=== PATIENT | male | born 1945 | race Caucasian/White ===

== ENCOUNTER 2020-05-07 10:12 | Inpatient (IN) ==
[2020-05-07] MEDS ORDERED: 0.9 % SODIUM CHLORIDE 1,000 ML IV ONE (10:48)
--- NOTE | 2020-05-07 10:54 | Emergency Department Note ---
Fall HPI General Chief Complaint: Fall Stated Complaint: fall hip back pain Time Seen by Provider: 05/07/20 10:28 Source: patient and EMS Mode of arrival: ambulatory History of Present Illness HPI Narrative: Narrative: 74-year-old male patient brought to the emergency department via ambulance with chief complaint falling at home. Patient, as well as EMS and his brother, says that he was trying to to get his pajama pants on prior to going to bed. During this time he slid off of his bed and landed on the floor with his gluteus. His brother found him on the floor several hours later and tried to get him off the floor but was unsuccessful. Eventually, 911 was contacted. Patient is unsure exactly how long he was on the floor but he estimates several hours. He denies preceding dizziness, shortness of breath, or chest pain prior to slipping out of bed. He denies hitting his head or loss of consciousness. Upon arrival, patient does complain of bilateral hip and low back pain. ROS: Denies systemic illness, fever, sweats, chills. Denies headaches, tinnitus, or vision changes. Denies runny nose, sinus congestion, or cough. Denies shortness of breath. Denies retrosternal chest pain or palpitations. Denies abdominal pain, nausea, vomiting, or diarrhea. Denies dysuria, hematuria, urinary frequency, or urinary urgency. Admits to generalized weakness. Related Data Home Medications Medication Instructions Recorded Confirmed [id number] acid-vit 1 tab PO QDAY 07/01/19 03/04/20 K-lycop 400 mcg-20 mcg-370 mcg tablet brimonidine 0.2 % eye drops 1 drp OPHTHALMIC Q8H ml 07/25/19 05/07/20 latanoprost 0.005 % eye drops 1 drp OPHTHALMIC QPM 07/25/19 05/07/20 nitroglycerin 0.4 mg sublingual 0.4 mg SUBLINGUAL ONCE PRN tab 07/25/19 03/04/20 tablet timolol 0.5 % eye drops 1 drp OPHTHALMIC BID 07/25/19 05/07/20 Previous Rx's Medication Instructions Recorded oxybutynin chloride 5 mg tablet 5 mg PO QHS #90 tab 02/25/20 enzalutamide 40 mg capsule 160 mg PO Q24H #360 cap 03/17/20 Allergies Allergy/AdvReac Type Severity Reaction Status Date / Time Sulfa (Sulfonamide Allergy Intermediate Unknown Verified 05/07/20 13:47 Antibiotics) atorvastatin [From Lipitor] Allergy Unknown Unknown Verified 05/07/20 13:47 bacitracin Allergy Unknown Unknown Verified 05/07/20 13:47 [From Neosporin ([id number])] Neomycin Allergy Unknown Unknown Verified 05/07/20 13:47 [From Neosporin ([id number])] polymyxin B Allergy Unknown Unknown Verified 05/07/20 13:47 [From Neosporin ([id number])] Review of Systems ROS ROS Narrative: Narrative: All systems ED: reviewed and negative except as stated. [facility] Narrative Patient History Narrative: Narrative: Medical/Surgical/Family History All Active Problems (Updated 05/07/20 @ 14:29 by Tez Landa PA-C) Acute renal failure due to rhabdomyolysis (Acute) Hypoglycemia (Acute) Malignant neoplasm of prostate metastatic to bone (Acute) Fall at home (Acute) Abdominal aortic aneurysm (Chronic) Pain of left thumb (Chronic) Benign prostatic hyperplasia with urinary obstruction (Chronic) Inguinal hernia (Chronic) Carcinoma of prostate (Chronic) History of BPH (Chronic) Glaucoma (Chronic) Hyperlipidemia (Chronic) Anemia (Chronic) Elevated PSA (Chronic) History of ETOH abuse (Chronic) Vitamin D deficiency (Chronic) Abrasion (Acute) Upper respiratory infection (Acute) Community acquired pneumonia (Acute) Pneumonia (Acute) Sepsis (Acute) Splinter (Acute) Strain of lumbar region (Acute) Dental abscess (Acute) Medical History Abdominal aortic aneurysm (Chronic) Anemia (Chronic) Benign prostatic hyperplasia with urinary obstruction (Chronic) Carcinoma of prostate (Chronic) Elevated PSA (Chronic) Glaucoma (Chronic) History of BPH (Chronic) Benign Protastic Hypertrophy History of ETOH abuse (Chronic) Hyperlipidemia (Chronic) Inguinal hernia (Chronic) Pain of left thumb (Chronic) Vitamin D deficiency (Chronic) Surgical History H/O hernia repair (Chronic ~01/04/08) with mesh History of bilateral cataract extraction (Acute) History of colonoscopy (Chronic) History of right inguinal hernia repair (Chronic) using mesh prosthesis Family History Father Kidney disease History of renal dialysis Malignant tumor of prostate Mother No problems noted. Social History Smoking Status: Former smoker Alcohol Intake Frequency: former alcohol drinker Substance Use: does not use Exam Narrative Narrative: Narrative: General General appearance: other (Well-developed, well-nourished but chronically ill- appearing 74-year-old male patient laying supine on the emergency room rney in no acute respiratory distress. His speech is somewhat garbled secondary to extreme dryness to his oral mucosa. However, no nasal flaring. No accessory muscle use.) Head Head: atraumatic and normocephalic Expanded Head Head physical: Absent abrasion, contusion, hematoma, raccoon eyes and Saucedo's sign Eye Eye: Present normal appearance, PERRL and EOMI; Absent scleral icterus and conjunctival injection ENT ENT: Present normal oropharynx and mucous membranes dry (Profound dryness to the oromucosa making it somewhat difficult to understand the patient as he speaks.) Neck Neck: Present trachea midline; Absent lymphadenopathy and thyromegaly Chest Chest: Present symmetric chest wall rise Respiratory Respiratory: Present normal lung sounds bilaterally; Absent respiratory distress, wheezes, stridor, accessory muscle use and prolonged expiratory phase Cardiovascular Cardiovascular: Present regular rate and normal rhythm; Absent systolic murmur and diastolic murmur Adbominal Abdominal: Present soft; Absent distention, tenderness, guarding, rebound, rigidity, organomegaly and mass Extremities Extremities: Present normal inspection and full ROM; Absent tenderness, normal capillary refill (3 seconds) and pedal edema Expanded Upper Extremity Shoulder: Present tenderness (Bilateral hip tenderness without crepitus.) Back Back: Present L-S tenderness Neurological Neurological: Present alert, oriented X3, CN II-XII intact, motor sensory de ficit and reflexes normal Psychiatric Psychiatric: Present normal affect and normal mood Skin Skin: Present cool, dry and pallor Course Course Course Narrative: Patient slipped out of bed last night and was found on the ground by his brother. Unsure exactly how long he is on the floor prior to being found. The main attempted to get him up but was unsuccessful. In was contacted. Upon arrival patient does have considerably garbled speech secondary to profound oral dryness. However, he is alert and orientated x3. He had no proceeding a dizziness, chest pain, shortness of breath prior to falling. At this time he has a decreased strength throughout. However, he is able to move all 4 extremities does not have any focal weakness. No neuro imaging seems wa rranted at this time. However, I am going to order screening laboratory studies. We are going to get x-rays of both hips and the patient's pelvis. Patient was given moistening swabs for his mouth to help him feel better that way. Reevaluation(s) Reevaluation #1: nursing staffing coordinator notified me that the patient's urine was cola colored. The UAD did show a significant blood but no evidence of infection. This is being sent to the lab for microscopic evaluation. Unfortunately, nursing staffing coordinator was only able to place a 22-gauge IV catheter in the patient's wrist. He is giving bolus of fluid through this. I did discuss the possibility of placing a central line in the patient with my collaborating physician (Dr. Zhong) to help facilit ate a larger volume of fluid for the bolus. Central lines have there own risks associated with them so it was thought best to wait for the rest of his workup to be completed to determine if this is truly needed. Patient is normotensive and afebrile. He is mildly tachycardic at a heart rate of 102. Time: 12:34 Reevaluation #2: A review of the patient's diagnostics with the following: CBC WBC 13.2, RBC 3.56, hemoglobin 10.8, hematocrit 34.0, platelets 311. CMP CO2 13, anion gap 25, BUN 46, creatinine 1.9, glucose 43, total bilirubin 2.0, AST 310, ALT 82, alkaline phosphatase 2291, total CK 4069, CK-MB 36.8, total protein 5.3, albumin 2.8, all others normal limits. Bilateral hip radiograph showing no acute fracture. There was noted diffuse sclerotic infiltration of the bone marrow throughout the visualized bones. Radiologist mentions this malignancy such as metastatic prostate cancer should be suspected. During this time RN checked the patient's fingerstick glucose and found it to be 27. During this time patient was given 50 g of dextrose IVP. While in the exam room giving him the glucose patient's oral mucosa was moist and with swabs. During this time patient began to gag and choke on oral secretions. His oral airway was gently suctioned multiple times removing scant amount of thick clear drainage. Upon reevaluation patient mentioned he was breathing a bit better. He was able to converse bit more clearly due to the patient's medical history is not current medical condition I had a roderick discussion about resuscitation. At this time patient told me he "did not want life support". However, he would like things such as CPR performed in the event that his heart were to stop beating or he wo uld stop breathing. After reviewing all of the data noted the patient illness. I discussed this case once again with my collaborating physician and requested that he also come in and evaluate the patient. Repeat blood sugar after the glucose infusion was 89. Time: 13:26 Reevaluation #3: My collaborating physician went in and discussed the patient's management and the patient's desire for care. At this time the patient requested that we reach out to his brother (Pedro Charles) I discussed admission with him. Afterwards, my collaborative physician discussed with Mr. Pedro Charles patient's desires and need for hospitalization. Patient currently makes his own medical decisions and also lives at home. He is certainly not a candidate to be discharged this time. Patient's brother deferred that decision back to the patient. Afterwards, we rediscussed admissions with the patient once again. He consented and will be admitted to the hospital for ongoing care. Repeat blood sugar initially dropped to 77 and then was checked again 15 minutes later and had stabilized at 78. He was given 25 g of dextrose IVP. I r eached out to the hospitalist (Dr. Sy) and discussed the patient's care and admission with him. At this time hospitalist has consented to admit the patient to the hospital for ongoing care. He did recommend starting the patient on D5 half-normal saline at 100 mL an hour. This was ordered and started prior to departure. Although the patient is ill with both rhabdomyolysis as well as metastatic prostate cancer he is remained rather stable in the emergency department with blood pressure 118/73, heart rate 110, respiratory rate 22, SPO2 96% on room air. At this time he is going to be admitted as mentioned. All further treatment decisions, modalities, and ultimate patient disposition will be carried out by the hospitalist. Time: 14:26 Vital Signs Vital signs: Vital Signs Temperature 97.9 F 05/07/20 10:18 Pulse Rate 94 H 09/18/20 10:18 Respiratory Rate 16 05/07/20 10:18 Blood Pressure 107/85 05/07/20 10:18 Pulse Oximetry (%) 95 05/07/20 10:18 Temperature 97.9 F 05/07/20 10:18 Pulse Rate 122 H 05/07/20 15:28 Respiratory Rate 26 H 05/07/20 15:28 Blood Pressure 124/109 05/07/20 15:28 Pulse Oximetry (%) 93 05/07/20 15:28 MDM MDM Narrative Medical decision making narrative: Narrative: Lab Data Lab results reviewed: Yes I reviewed the patient's lab results. Result diagrams: 05/07/20 11:10 05/07/20 11:10 Labs: Lab Results 05/07/20 05/07/20 05/07/20 Range/Units 11:10 11:10 12:09 WBC 13.2 H (4.50-11.00) K/mcL RBC 3.56 L (4.63-6.08) M/mcL Hgb 10.8 L (13.7-17.5) g/dL Hct 34.0 L (40.1-51.0) % MCV 95.5 (80.0-100.0) fL MCH 30.3 (26.0-34.0) pg MCHC 31.8 (31.0-36.0) g/dL RDW 14.4 (11.5-14.5) % Plt Count 311 (140-440) K/mcL MPV 10.2 (7.4-10.4) fL Gran % 81.8 H (38.0-78.0) % Lymph % (Auto) 13.1 L (15.5-49.0) % [place] % (Auto) 4.1 (1.0-12.0) % Eos % (Auto) 0.4 (0.0-7.0) % Baso % (Auto) 0.6 (0.0-2.0) % Gran # 10.80 H (1.80-8.00) K/mcL Lymph # (Auto) 1.73 (1.50-4.80) K/mcL [place] # (Auto) 0.54 (0.10-0.90) K/mcL Eos # (Auto) 0.05 (0.00-0.70) K/mcL Baso # (Auto) 0.08 (0.00-0.30) K/mcL Sodium 142 (133-145) mmol/L Potassium 3.3 (3.3-5.1) mmol/L Chloride 104 (96-108) mmol/L Carbon Dioxide 13 L (22-30) mmol/L Anion Gap 25.0 H (8-16) BUN 46 H (8-23) mg/dl Creatinine 1.9 H (0.7-1.2) mg/dl GFR Calculation 34 Glucose 43 L (70-105) mg/dL Calcium 8.7 (8.6-10.4) mg/dl Total Bilirubin 2.0 H (0.0-1.0) mg/dL AST 319 H (0-37) U/l ALT 82 H (0-40) U/l Alkaline Phosphatase 2291 H (39-117) U/L Total Creatine Kinase 4169 H (24-195) IU/L CK-MB (CK-2) 36.8 H (0-4.9) ng/ml Total Protein 5.3 L (5.9-8.4) gm/dL Albumin 2.8 L (3.2-5.2) gm/dL Globulin 2.5 (2.2-3.7) gm/dL Albumin/Globulin Ratio 1.1 (1.0-2.3) Urine Color [place] Urine Appearance Clear Urine pH 5.0 (5.0-9.0) Ur Specific [place] 1.018 (1.000-1.035) Urine Protein 30 A (NEG) mg/dL Urine Glucose (UA) Negative (NEG) mg/dL Urine Ketones 5/tr A (NEG) mg/dL Urine Occult Blood >=1.0 A (<0.03) mg/dL Urine Nitrate Neg (NEG) Urine Bilirubin Neg (NEG) mg/dL Urine Urobilinogen 4.0 A (NEG) mg/dL Ur Leukocyte Esterase Neg (NEG) /uL Urine RBC < 1 (0-1) /hpf Urine WBC 0 (0-4) /hpf Ur Squamous Epith Cells 0 (0-4) /hpf Urine Bacteria 0 (0) /hpf Ur Culture Indicated? No Radiology Data Radiology results reviewed: Yes I reviewed the patient's radiology results. Radiology results narrative: Ordering Physician: Tez Landa PA-C Date of Service: 05/07/20 Procedure(s): XR hips BI 2V w/AP pelvis Accession Number(s): [id number] HISTORY: Slipped, fell and injured hips while getting out of bed FINDINGS: There is extensive sclerosis throughout the pelvic bones sacrum lower lumbar spine and both left and right proximal femur. There are subtle old healed fractures involving the right superior ischial and right inferior pubic rami. No acute fracture or dislocation are present. Joint spaces of both hips are normal in width and there is no significant spur formation around the hips. Mild arthritis is present in the lower lumbar spine. Comparison with the prior pelvic x-ray done on 04/05/19 shows the sclerotic lesions are chronic but have progressed. IMPRESSION: No acute fracture Diffuse sclerotic infiltration of the bone marrow throughout the visualized bones. Malignancy such as metastatic prostate cancer should be suspected. Interpreted and Authenticated by: Azam Pond 05/07/20 Discharge Plan Patient/Caregiver Discharge Instructions Pt seen by BIN [facility]ANER/PA only: No (Dr. Zhong.) Clinical Impression: Acute renal failure due to rhabdomyolysis, Hypoglycemia, Malignant neoplasm of prostate metastatic to bone Fall at home Qualifiers: Encounter type: initial encounter Qualified Code(s): W19.XXXA - Unspecified fall, initial encounter Patient Disposition: Xfer As Inpt ([facility]) Condition: Serious Follow up with: No,PCP [Primary Care Provider] - Prescriptions: No Action Xtandi 40 mg capsule 160 mg PO Q24H Qty: 360 RF: 5 brimonidine 0.2 % drops 1 drp OPHTHALMIC Q8H RF: 0 latanoprost 0.005 % drops 1 drp OPHTHALMIC QPM RF: 0 nitroglycerin 0.4 mg tablet, sublingual 0.4 mg SUBLINGUAL ONCE PRNRF: 0 timolol 0.5 % drops 1 drp OPHTHALMIC BID RF: 0 Men's 50 Plus Multivitamin 400-20-370 mcg tablet 1 tab PO QDAY RF: 0 oxybutynin chloride 5 mg tablet 5 mg PO QHS Qty: 90 RF: 5
--- NOTE | 2020-05-07 12:02 | XRay Report ---
HISTORY: Slipped, fell and injured hips while getting out of bed FINDINGS: There is extensive sclerosis throughout the pelvic bones sacrum lower lumbar spine and both left and right proximal femur. There are subtle old healed fractures involving the right superior ischial and right inferior pubic rami. No acute fracture or dislocation are present. Joint spaces of both hips are normal in width and there is no significant spur formation around the hips. Mild arthritis is present in the lower lumbar spine. Comparison with the prior pelvic x-ray done on 04/05/19 shows the sclerotic lesions are chronic but have progressed. IMPRESSION: No acute fracture Diffuse sclerotic infiltration of the bone marrow throughout the visualized bones. Malignancy such as metastatic prostate cancer should be suspected. Interpreted and Authenticated by: Azam Pond 05/07/20
[2020-05-07 12:22] LABS: Creatine Kinase MB 36.8 ng/ml (0-4.9)
[2020-05-07 12:29] LABS: ALT/SGPT 82 U/l (0-40); AST/SGOT 319 U/l (0-37); Albumin 2.8 gm/dL (3.2-5.2); Albumin/Globulin Ratio 1.1 (1.0-2.3); Blood Urea Nitrogen 46 mg/dl (8-23); Calcium 8.7 mg/dl (8.6-10.4); Carbon Dioxide 13 mmol/L (22-30); Chloride 104 mmol/L (96-108); Globulin 2.5 gm/dL (2.2-3.7); Glomerular Filtration Rate 34; Glucose 43 mg/dL (70-105)
[2020-05-07 12:31] LABS: Basophils # (Auto) 0.08 K/mcL (0.00-0.30); Basophils % (Auto) 0.6 % (0.0-2.0); Eosinophils # (Auto) 0.05 K/mcL (0.00-0.70); Eosinophils % (Auto) 0.4 % (0.0-7.0); Granulocytes % (Auto) 81.8 % (38.0-78.0); Hemoglobin 10.8 g/dL (13.7-17.5); Lymphocytes # (Auto) 1.73 K/mcL (1.50-4.80); Lymphocytes % (Auto) 13.1 % (15.5-49.0); Mean Cell Volume 95.5 fL (80.0-100.0); Mean Corpuscular HGB Conc 31.8 g/dL (31.0-36.0); Mean Platelet Volume 10.2 fL (7.4-10.4); Monocytes # (Auto) 0.54 K/mcL (0.10-0.90); Monocytes % (Auto) 4.1 % (1.0-12.0); Platelet Count 311 K/mcL (140-440); RBC 3.56 M/mcL (4.63-6.08); Red Cell Distribution Width 14.4 % (11.5-14.5); WBC 13.2 K/mcL (4.50-11.00)
[2020-05-07 12:43] LABS: Alkaline Phosphatase 2291 U/L (39-117); Creatine Kinase 4169 IU/L (24-195)
[2020-05-07] MEDS ORDERED: DEXTROSE 50% 50 ML SYRINGE IV ONE (12:56)
[2020-05-07] MEDS ORDERED: DEXTROSE 50% 50 ML VIAL IV ONE ×2 (14:06→14:20)
[2020-05-07 14:21] LABS: Appearance,Urine CLEAR; Bacteria,Urine 0 /hpf (0); Bilirubin,Urine NEG (NEG); Color,Urine AMBER; Culture Indicated,Urine NO; Glucose,Urine (UA) NEGATIVE (NEG); Ketones,Urine 5/TR mg/dL (NEG); Leukocyte Esterase,Urine NEG /uL (NEG); Nitrate,Urine NEG (NEG); Protein,Urine 30 mg/dL (NEG); Specific Gravity,Urine 1.018 (1.000-1.035); Urine Blood >=1.0 mg/dL (<0.03); Urine RBC < 1 /hpf (0-1); Urine Squamous Epithelial Cell 0 /hpf (0-4); Urine WBC 0 /hpf (0-4)
[2020-05-07] MEDS ORDERED: DEXTROSE 5%-1/2NS 1,000 ML IV SCH ×3 (14:30→16:43)
[2020-05-07] MEDS ORDERED: ONDANSETRON 4 MG/2 ML VIAL IV PRN ×3 (15:21→16:51)
[2020-05-07] MEDS ORDERED: PROMETHAZINE 25 MG/ML VIAL IV PRN ×3 (15:26→16:51)
[2020-05-07] MEDS ORDERED: traMADol 50 MG TABLET PO PRN ×2 (15:38→16:43)
[2020-05-07] MEDS ORDERED: BRIMONIDINE OPHTH DROPS 1 GTT BOTTLE 5ML OU SCH ×2 (15:45→22:00)
--- NOTE | 2020-05-07 15:51 | Internal Med History&Physical ---
HPI History of Present Illness Patient information: Note initiated : 05/07/20 at 3:47 pm Service Date, if different from initiated Date: [] Patient: Karsten Charles a 74 y/o M admitted on for fall hip back pain. Chief Complaint: [] History of present illness: Mr. Charles is a 74 year old M with a history of prostate cancer and chronic anemia who was brought blood to the ER due to falling at home. Patient has a garbled speech and a poor historian. Patient fell (slid off of his bed and landed on the floor) last night at home. He denies loss of consciousness or injury to head. Denies nausea, vomiting, or palpitation at that time. He stayed on the ground for several hours until his brother found him. Patient lives by himself. In the ER, he was found to have will hypoglycemia 27, and elevation of CK and creatinine. Blood glucose level was up to 77 after 2 amp of D50 were given. Hip x-ray did not show fracture but did show evidence of metastatic malignancy to bone. When I saw this patient in the ER, other than symptoms mentioned above, he denied headache, dizziness, nausea, vomiting, fever, chills, chest pain, abdominal pain, or change in vision. Review of Systems All systems: reviewed and no additional remarkable complaints except as stated PFSH PFSH All Active Problems Acute renal failure due to rhabdomyolysis (Acute) Hypoglycemia (Acute) Malignant neoplasm of prostate metastatic to bone (Acute) Fall at home (Acute) Abdominal aortic aneurysm (Chronic) Pain of left thumb (Chronic) Benign prostatic hyperplasia with urinary obstruction (Chronic) Inguinal hernia (Chronic) Carcinoma of prostate (Chronic) History of BPH (Chronic) Glaucoma (Chronic) Hyperlipidemia (Chronic) Anemia (Chronic) Elevated PSA (Chronic) History of ETOH abuse (Chronic) Vitamin D deficiency (Chronic) Abrasion (Acute) Upper respiratory infection (Acute) Community acquired pneumonia (Acute) Pneumonia (Acute) Sepsis (Acute) Splinter (Acute) Strain of lumbar region (Acute) Dental abscess (Acute) Medical History Abdominal aortic aneurysm (Chronic) Anemia (Chronic) Benign prostatic hyperplasia with urinary obstruction (Chronic) Carcinoma of prostate (Chronic) Elevated PSA (Chronic) Glaucoma (Chronic) History of BPH (Chronic) Benign Protastic Hypertrophy History of ETOH abuse (Chronic) Hyperlipidemia (Chronic) Inguinal hernia (Chronic) Pain of left thumb (Chronic) Vitamin D deficiency (Chronic) Surgical History H/O hernia repair (Chronic ~01/04/08) with mesh History of bilateral cataract extraction (Acute) History of colonoscopy (Chronic) History of right inguinal hernia repair (Chronic) using mesh prosthesis Family History Father Kidney disease History of renal dialysis Malignant tumor of prostate Mother No problems noted. Social History occupational status: other smoking status: Former smoker smoking status stop date: 06/20/87 alcohol intake frequency: former alcohol drinker counseling provided: other substance use type: does not use MEDS/ALLERGIES Home Medications and Allergies Home Medications Medication Instructions Recorded Confirmed Type brimonidine 0.2 % eye drops 1 drp OPHTHALMIC Q8H ml 07/25/19 05/07/20 History latanoprost 0.005 % eye drops 1 drp OPHTHALMIC QPM 07/25/19 05/07/20 History timolol 0.5 % eye drops 1 drp OPHTHALMIC BID 07/25/19 05/07/20 History oxybutynin chloride 5 mg tablet 5 mg PO QHS #90 tab 02/25/20 05/07/20 Rx Allergies Allergy/AdvReac Type Severity Reaction Status Date / Time Sulfa (Sulfonamide Allergy Intermediate Unknown Verified 05/07/20 13:47 Antibiotics) atorvastatin [From Lipitor] Allergy Unknown Unknown Verified 05/07/20 13:47 bacitracin Allergy Unknown Unknown Verified 05/07/20 13:47 [From Neosporin ([id number])] Neomycin Allergy Unknown Unknown Verified 05/07/20 13:47 [From Neosporin ([id number])] polymyxin B Allergy Unknown Unknown Verified 05/07/20 13:47 [From Neosporin ([id number])] EXAM Constitutional Vitals: Temp Pulse Resp BP Pulse Ox 97.9 F 122 H 26 H 124/109 93 05/07/20 10:18 05/07/20 15:28 05/07/20 15:28 05/07/20 15:28 05/07/20 15:28 Additional findings Additional findings: General - Garbled speech, but he answers questions appropriately. No acute distress Eyes - PERRLA, EOM intact ENT no rhinorrhea, no noticeable or palpable swelling, no redness or rash around throat or on face. Dry oral mucous membranes Neck supple, no JVD, no thyromegaly Respiratory: Lungs - CTA. No wheezing. Cardiovascular - RRR no m/r/g, GI - Normal bowel sounds, no distended, soft. Extremeties - Pitting edema + in both legs; no cyanosis or clubbing Hemo/lymphatic/immune no lymphadenopathy Neurological Alert and oriented x 3, garbled/slurred speech, no focal neurologic deficits. Psychiatry flat affect DATA Data Completed and Pending Labs: Labs from last 24 hours 05/07/20 05/07/20 05/07/20 12:09 11:10 11:10 WBC 13.2 H RBC 3.56 L Hgb 10.8 L Hct 34.0 L MCV 95.5 MCH 30.3 MCHC 31.8 RDW 14.4 Plt Count 311 MPV 10.2 Gran % 81.8 H Lymph % (Auto) 13.1 L [place] % (Auto) 4.1 Eos % (Auto) 0.4 Baso % (Auto) 0.6 Gran # 10.80 H Lymph # (Auto) 1.73 [place] # (Auto) 0.54 Eos # (Auto) 0.05 Baso # (Auto) 0.08 Sodium 142 Potassium 3.3 Chloride 104 Carbon Dioxide 13 L Anion Gap 25.0 H BUN 46 H Creatinine 1.9 H GFR Calculation 34 Glucose 43 L Calcium 8.7 Total Bilirubin 2.0 H AST 319 H ALT 82 H Alkaline Phosphatase 2291 H Total Creatine Kinase 4169 H CK-MB (CK-2) 36.8 H Total Protein 5.3 L Albumin 2.8 L Globulin 2.5 Albumin/Globulin Ratio 1.1 Urine Color Eneida Urine Appearance Clear Urine pH 5.0 Ur Specific [place] 1.018 Urine Protein 30 A Urine Glucose (UA) Negative Urine Ketones 5/tr A Urine Occult Blood >=1.0 A Urine Nitrate Neg Urine Bilirubin Neg Urine Urobilinogen 4.0 A Ur Leukocyte Esterase Neg Urine RBC < 1 Urine WBC 0 Ur Squamous Epith Cells 0 Urine Bacteria 0 Ur Culture Indicated? No A/P Narrative A/P Narrative: 1. Mechanical fall, ground level Hip x-ray showed no fracture PT OT 2. Rhabdomyolysis IV fluid Monitor renal function Repeat CK in morning 3. Hypoglycemia, Hb11c 5.9 on 04/24/2019 Denies history of diabetes Could be due to not eating well D50 x 2 were given in the ER. D5 one half normal IV 125 cc per hour Hemoglobin A1c 3. Metastatic prostate cancer to bone? PSA 128 on 11/28/2019, ALP 2291 Hip/pelvis XR- Diffuse sclerotic infiltration of the bone marrow throughout the visualized bones. Malignancy such as metastatic prostate cancer should be suspected. Urology consult 4. Leukocytosis Unknown etiology, could be due to acute distress No evidence of infection Repeat CBC in morning 5. Chronic anemia Could be due to metastatic malignancy and malnutrition Repeat CBC in morning 6. THONY or THONY on CKD, creatinine 1.0 n 08/08/2019 Urine sodium and creatinine Avoid nephrotoxic meds Intake and output Repeat renal function in morning 7. Dehydration IV fluid BNP 8. Elevation of liver enzymes Repeat liver function in the morning 9. Hematuria Urinalysis negative for UTI Could be due to prostate cancer Monitor HH No pharmacological DVT prophylaxis 10. Garbled/slurred speech Not sure chronicity Nasal labial folds symmetrical No focal neurologic deficits CT of head N.p.o. until passing swallow screen, ST. 11. Self care deficit PT OT CM 12. DVT prophylaxis: SCD No DVT prophylaxis at this moment due to recent fall, rhabdomyolysis and hematuria 13. CODE STATUS: Discussed with the patient who denied CPR but he was not sure about intubation. Earlier today in the ER, he told ER staff that CPR is okay. He agreed to talk to his brother, Pedro Charles. Time Spent With Patient Time: Total time spent is greater than 50% in coordination of care (as documented) at patient's floor/unit and/or counseling patient:
--- NOTE | 2020-05-07 15:52 | Emergency Department Note ---
HPI General Chief complaint: Fall Stated complaint: fall hip back pain Time Seen by Provider: 05/07/20 10:28 Source: patient and EMS Mode of arrival: ambulatory History of Present Illness HPI Narrative: Narrative: I was consulted by Tez Landa PA-C, regarding this patient's care and circumstances. I briefly interviewed and briefly examined this patient. He was significantly difficult to understand, dry mouth, weak, mildly cachectic, etc. I have discussed his case and care and work-up and treatment with Tez Landa and agree with his documentation and management. I discussed with patient his aggressiveness circumstance. He wanted to be able to speak with his brother Pedro Charles regarding this. I was able to speak with Pedro. He is able to speak with patient in the near future. He reports the patient lives alone. Violette burns is not able to take care of himself under the circumstances and will be there for admitted for further treatment and/or arrangement of his long-term care. This seems appropriate. Patient if he chooses comfort measures only longer-term may need further arrangements to a different setting than his home. Related Data Home Medications Medication Instructions Recorded Confirmed [id number] acid-vit 1 tab PO QDAY 07/01/19 03/04/20 K-lycop 400 mcg-20 mcg-370 mcg tablet brimonidine 0.2 % eye drops 1 drp OPHTHALMIC Q8H ml 07/25/19 05/07/20 latanoprost 0.005 % eye drops 1 drp OPHTHALMIC QPM 07/25/19 05/07/20 nitroglycerin 0.4 mg sublingual 0.4 mg SUBLINGUAL ONCE PRN tab 07/25/19 03/04/20 tablet timolol 0.5 % eye drops 1 drp OPHTHALMIC BID 07/25/19 05/07/20 Previous Rx's Medication Instructions Recorded oxybutynin chloride 5 mg tablet 5 mg PO QHS #90 tab 02/25/20 enzalutamide 40 mg capsule 160 mg PO Q24H #360 cap 03/17/20 Allergies Allergy/AdvReac Type Severity Reaction Status Date / Time Sulfa (Sulfonamide Allergy Intermediate Unknown Verified 05/07/20 13:47 Antibiotics) atorvastatin [From Lipitor] Allergy Unknown Unknown Verified 05/07/20 13:47 bacitracin Allergy Unknown Unknown Verified 05/07/20 13:47 [From Neosporin ([id number])] Neomycin Allergy Unknown Unknown Verified 05/07/20 13:47 [From Neosporin ([id number])] polymyxin B Allergy Unknown Unknown Verified 05/07/20 13:47 [From Neosporin ([id number])] Review of Systems ROS ROS Narrative: Narrative: PFSH Narrative Patient History Narrative: Narrative: Medical/Surgical/Family History All Active Problems (Updated 05/07/20 @ 14:29 by Tez Landa PA-C) Acute renal failure due to rhabdomyolysis (Acute) Hypoglycemia (Acute) Malignant neoplasm of prostate metastatic to bone (Acute) Fall at home (Acute) Abdominal aortic aneurysm (Chronic) Pain of left thumb (Chronic) Benign prostatic hyperplasia with urinary obstruction (Chronic) Inguinal hernia (Chronic) Carcinoma of prostate (Chronic) History of BPH (Chronic) Glaucoma (Chronic) Hyperlipidemia (Chronic) Anemia (Chronic) Elevated PSA (Chronic) History of ETOH abuse (Chronic) Vitamin D deficiency (Chronic) Abrasion (Acute) Upper respiratory infection (Acute) Community acquired pneumonia (Acute) Pneumonia (Acute) Sepsis (Acute) Splinter (Acute) Strain of lumbar region (Acute) Dental abscess (Acute) Medical History Abdominal aortic aneurysm (Chronic) Anemia (Chronic) Benign prostatic hyperplasia with urinary obstruction (Chronic) Carcinoma of prostate (Chronic) Elevated PSA (Chronic) Glaucoma (Chronic) History of BPH (Chronic) Benign Protastic Hypertrophy History of ETOH abuse (Chronic) Hyperlipidemia (Chronic) Inguinal hernia (Chronic) Pain of left thumb (Chronic) Vitamin D deficiency (Chronic) Surgical History H/O hernia repair (Chronic ~01/04/08) with mesh History of bilateral cataract extraction (Acute) History of colonoscopy (Chronic) History of right inguinal hernia repair (Chronic) using mesh prosthesis Family History Father Kidney disease History of renal dialysis Malignant tumor of prostate Mother No problems noted. Social History Smoking Status: Former smoker Alcohol Intake Frequency: former alcohol drinker Substance Use: does not use Exam Narrative Narrative: Narrative: Somewhat cachectic and aged frail gentleman difficult to understand. He seems rather weakened. I discussed with him aggressive measures versus not. He does not seem to want major aggressive interventions but he would like to discuss circumstances with his brother Pedro. Course Vital Signs Vital signs: Vital Signs Temperature 97.9 F 05/07/20 10:18 Pulse Rate 94 H 05/07/20 10:18 Respiratory Rate 16 05/07/20 10:18 Blood Pressure 107/85 05/07/20 10:18 Pulse Oximetry (%) 95 05/07/20 10:18 Temperature 97.9 F 05/07/20 10:18 Pulse Rate 122 H 05/07/20 15:28 Respiratory Rate 26 H 05/07/20 15:28 Blood Pressure 124/109 05/07/20 15:28 Pulse Oximetry (%) 93 05/07/20 15:28 MDM MDM Narrative Medical decision making narrative: Narrative: See above and below and Tez Landa's ER visit note. Lab Data Result diagrams: 05/07/20 11:10 05/07/20 11:10 Labs: Lab Results 05/07/20 05/07/20 05/07/20 Range/Units 11:10 11:10 12:09 WBC 13.2 H (4.50-11.00) K/mcL RBC 3.56 L (4.63-6.08) M/mcL Hgb 10.8 L (13.7-17.5) g/dL Hct 34.0 L (40.1-51.0) % MCV 95.5 (80.0-100.0) fL MCH 30.3 (26.0-34.0) pg MCHC 31.8 (31.0-36.0) g/dL RDW 14.4 (11.5-14.5) % Plt Count 311 (140-440) K/mcL MPV 10.2 (7.4-10.4) fL Gran % 81.8 H (38.0-78.0) % Lymph % (Auto) 13.1 L (15.5-49.0) % [place] % (Auto) 4.1 (1.0-12.0) % Eos % (Auto) 0.4 (0.0-7.0) % Baso % (Auto) 0.6 (0.0-2.0) % Gran # 10.80 H (1.80-8.00) K/mcL Lymph # (Auto) 1.73 (1.50-4.80) K/mcL [place] # (Auto) 0.54 (0.10-0.90) K/mcL Eos # (Auto) 0.05 (0.00-0.70) K/mcL Baso # (Auto) 0.08 (0.00-0.30) K/mcL Sodium 142 (133-145) mmol/L Potassium 3.3 (3.3-5.1) mmol/L Chloride 104 (96-108) mmol/L Carbon Dioxide 13 L (22-30) mmol/L Anion Gap 25.0 H (8-16) BUN 46 H (8-23) mg/dl Creatinine 1.9 H (0.7-1.2) mg/dl GFR Calculation 34 Glucose 43 L (70-105) mg/dL Calcium 8.7 (8.6-10.4) mg/dl Total Bilirubin 2.0 H (0.0-1.0) mg/dL AST 319 H (0-37) U/l ALT 82 H (0-40) U/l Alkaline Phosphatase 2291 H (39-117) U/L Total Creatine Kinase 4169 H (24-195) IU/L CK-MB (CK-2) 36.8 H (0-4.9) ng/ml Total Protein 5.3 L (5.9-8.4) gm/dL Albumin 2.8 L (3.2-5.2) gm/dL Globulin 2.5 (2.2-3.7) gm/dL Albumin/Globulin Ratio 1.1 (1.0-2.3) Urine Color Eneida Urine Appearance Clear Urine pH 5.0 (5.0-9.0) Ur Specific [place] 1.018 (1.000-1.035) Urine Protein 30 A (NEG) mg/dL Urine Glucose (UA) Negative (NEG) mg/dL Urine Ketones 5/tr A (NEG) mg/dL Urine Occult Blood >=1.0 A (<0.03) mg/dL Urine Nitrate Neg (NEG) Urine Bilirubin Neg (NEG) mg/dL Urine Urobilinogen 4.0 A (NEG) mg/dL Ur Leukocyte Esterase Neg (NEG) /uL Urine RBC < 1 (0-1) /hpf Urine WBC 0 (0-4) /hpf Ur Squamous Epith Cells 0 (0-4) /hpf Urine Bacteria 0 (0) /hpf Ur Culture Indicated? No Discharge Plan Patient/Caregiver Discharge Instructions Pt seen by G[facility] OPERATOR/PA only: Gretchen (Dr. Zhong.) Clinical Impression: Acute renal failure due to rhabdomyolysis, Hypoglycemia, Malignant neoplasm of prostate metastatic to bone Fall at home Qualifiers: Encounter type: initial encounter Qualified Code(s): W19.XXXA - Unspecified fall, initial encounter Patient Disposition: Xfer As Inpt ([facility]) Condition: Serious Follow up with: No,PCP [Primary Care Provider] - Prescriptions: No Action Xtandi 40 mg capsule 160 mg PO Q24H Qty: 360 RF: 5 brimonidine 0.2 % drops 1 drp OPHTHALMIC Q8H RF: 0 latanoprost 0.005 % drops 1 drp OPHTHALMIC QPM RF: 0 nitroglycerin 0.4 mg tablet, sublingual 0.4 mg SUBLINGUAL ONCE PRNRF: 0 timolol 0.5 % drops 1 drp OPHTHALMIC BID RF: 0 Men's 50 Plus Multivitamin 400-20-370 mcg tablet 1 tab PO QDAY RF: 0 oxybutynin chloride 5 mg tablet 5 mg PO QHS Qty: 90 RF: 5
--- NOTE | 2020-05-07 16:38 | XRay Report ---
HISTORY: Worsening dyspnea, choking, possible aspiration, fell, FINDINGS: There is a vague haziness in the lung parenchyma in the right lung volume both upper and lower lung [place]. Lung volumes are normal and there is no focal consolidation. No foreign body is present. There is also no pleural effusion. The heart size is normal. Aneurysmal dilatation of the ascending aorta is present. This apparent documented on prior chest CT. The bones are diffusely sclerotic. Does the patient have a known malignancy? IMPRESSION: Possible early pneumonia in the right lung Blastic metastasis throughout the visualized skeleton. Chronic aneurysm of the ascending aorta Interpreted and Authenticated by: Azam Pond 05/07/20
--- NOTE | 2020-05-07 16:45 | Cat Scan Report ---
History: Fell with new onset garbled and slurred speech TECHNIQUE: The brain was imaged without contrast at 2.5 mm intervals. Sagittal and coronal reformats were created. The radiation exposure was limited using dose reduction technology. FINDINGS: No skull fracture is present. There is no intracranial hemorrhage or cerebral edema. A 1.2 cm old infarct encephalomalacia is present laterally in the left parietal lobe. This is seen on axial image #40. No acute infarct is detected. There are age-related degenerative changes with mild generalized cerebral atrophy and patchy areas of decreased attenuation in the centrum semiovale throughout the frontal and parietal lobes. The ventricles are prominent but proportionate to the atrophy. Comparison the prior head CT done on 04/04/19 shows the left parietal lobe infarct is unchanged. 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 Sy was called with the results Interpreted and Authenticated by: Azam Pond 05/07/20
[2020-05-07] MEDS: DEXTROSE 5%-1/2NS 1,000 ML IV SCH ×2 (16:55→23:05)
--- NOTE | 2020-05-07 20:31 | Event Note ---
Event Note Event Note: Parties in Attendance: Patient, brother (Pedro and Pedro's Mrs Charles). Decisional Capacity: Yes POLST form completed: not I explained the process regarding CPR and intubation in details. Pt Mr. Karsten Charles denied CPR but he was not sure about intubation. He agreed me to discuss this with his brother Pedro. I spoke to Pedro and by phone who agreed to discuss with K[facility]. They will give me a final decision soon.
[2020-05-07] MEDS ORDERED: LATANOPROST OPHTH DROPS 2.5ML BOTTLE OU SCH ×2 (21:00)
[2020-05-07] MEDS ORDERED: OXYBUTYNIN CHLORIDE 5 MG TABLET PO SCH ×2 (21:00)
[2020-05-07] MEDS ORDERED: TIMOLOL OPHTHALMIC SCH (21:00)
[2020-05-07] MEDS ORDERED: DOCUSATE SODIUM 100 MG CAPSULE PO SCH ×2 (21:00)
[2020-05-07] MEDS ORDERED: TIMOLOL 0.25% OPHTH DROPS BOTTLE 5ML OU SCH (21:00)
[2020-05-07] MEDS ORDERED: FAMOTIDINE/PF 20 MG/2 ML VIAL IV SCH ×2 (21:00)
[2020-05-07] MEDS: traMADol 50 MG TABLET PO PRN (21:15)
[2020-05-07] MEDS: DOCUSATE SODIUM 100 MG CAPSULE PO SCH (21:20)
[2020-05-07] MEDS: OXYBUTYNIN CHLORIDE 5 MG TABLET PO SCH (21:20)
[2020-05-07] MEDS: FAMOTIDINE/PF 20 MG/2 ML VIAL IV SCH (21:20)
[2020-05-07] MEDS: BRIMONIDINE OPHTH DROPS 1 GTT BOTTLE 5ML OU SCH (21:21)
[2020-05-07] MEDS: TIMOLOL 0.25% OPHTH DROPS BOTTLE 5ML OU SCH (21:21)
[2020-05-07] MEDS: LATANOPROST OPHTH DROPS 2.5ML BOTTLE OU SCH (21:22)
[2020-05-07] MEDS ORDERED: 0.9 % SODIUM CHLORIDE 10 ML SYRINGE IV SCH ×2 (22:00)
[2020-05-07] MEDS: 0.9 % SODIUM CHLORIDE 10 ML SYRINGE IV SCH (23:11)
[2020-05-08] MEDS: BRIMONIDINE OPHTH DROPS 1 GTT BOTTLE 5ML OU SCH ×3 (06:00→20:48)
[2020-05-08 07:03] LABS: ALT/SGPT 83 U/l (0-40); AST/SGOT 303 U/l (0-37); Albumin 2.3 gm/dL (3.2-5.2); Bilirubin,Total 1.7 mg/dL (0.0-1.0); Blood Urea Nitrogen 42 mg/dl (8-23); Calcium 8.2 mg/dl (8.6-10.4); Carbon Dioxide 18 mmol/L (22-30); Chloride 108 mmol/L (96-108); Globulin 2.2 gm/dL (2.2-3.7); Glomerular Filtration Rate 48; Glucose 140 mg/dL (70-105); Phosphorous 3.8 mg/dL (2.7-4.5)
[2020-05-08] MEDS: DEXTROSE 5%-1/2NS 1,000 ML IV SCH ×2 (07:09→15:48)
[2020-05-08 07:22] LABS: Alkaline Phosphatase 1736 U/L (39-117); Basophils # (Auto) 0.03 K/mcL (0.00-0.30); Basophils % (Auto) 0.3 % (0.0-2.0); Eosinophils # (Auto) 0.02 K/mcL (0.00-0.70); Eosinophils % (Auto) 0.2 % (0.0-7.0); Granulocytes % (Auto) 76.7 % (38.0-78.0); Hematocrit 31.7 % (40.1-51.0); Hemoglobin 10.4 g/dL (13.7-17.5); Lymphocytes # (Auto) 1.82 K/mcL (1.50-4.80); Lymphocytes % (Auto) 16.9 % (15.5-49.0); Mean Cell Volume 94.6 fL (80.0-100.0); Mean Corpuscular HGB Conc 32.8 g/dL (31.0-36.0); Mean Platelet Volume 10.2 fL (7.4-10.4); Monocytes # (Auto) 0.64 K/mcL (0.10-0.90); Monocytes % (Auto) 5.9 % (1.0-12.0); Platelet Count 292 K/mcL (140-440); RBC 3.35 M/mcL (4.63-6.08); Red Cell Distribution Width 14.7 % (11.5-14.5); WBC 10.8 K/mcL (4.50-11.00)
[2020-05-08 07:52] LABS: Estimated Average Glucose(eAG) 117 mg/dL; Hemoglobin A1C 5.7 % HGB (4.0-6.0)
[2020-05-08] MEDS: DOCUSATE SODIUM 100 MG CAPSULE PO SCH ×2 (08:07→21:06)
[2020-05-08] MEDS: FAMOTIDINE/PF 20 MG/2 ML VIAL IV SCH ×2 (08:11→20:36)
[2020-05-08] MEDS: 0.9 % SODIUM CHLORIDE 10 ML SYRINGE IV SCH ×3 (08:12→20:50)
[2020-05-08] MEDS: cefTRIAXone 2 GM in DEXTROSE 5% IN WATER 50 ML IV SCH (11:42)
[2020-05-08] MEDS: TIMOLOL 0.25% OPHTH DROPS BOTTLE 5ML OU SCH (14:25)
[2020-05-08] MEDS: KETOROLAC 15 MG/ML VIAL IV PRN (17:45)
--- NOTE | 2020-05-08 17:52 | Internal Med Progress Note ---
SUBJECTIVE Subjective Patient information: Note initiated : 05/08/20 at 5:50 pm Service Date, if different from initiated Date: [] Patient: Karsten Charles 74 y/o M admitted on 05/07/20 for fall hip back pain. Chief Complaint: [] Mr. Charles is a 74 year old M with a history of prostate cancer and chronic anemia who was brought blood to the ER due to falling at home. Patient has a garbled speech and a poor historian. Patient fell (slid off of his bed and landed on the floor) last night at home. He denies loss of consciousness or injury to head. Denies nausea, vomiting, or palpitation at that time. He stayed on the ground for several hours until his brother found him. Patient lives by himself. In the ER, he was found to have will hypoglycemia 27, and elevation of CK and creatinine. Blood glucose level was up to 77 after 2 amp of D50 were given. Hip x-ray did not show fracture but did show evidence of metastatic malignancy to bone. When I saw this patient in the ER, other than symptoms mentioned above, he denied headache, dizziness, nausea, vomiting, fever, chills, chest pain, abdominal pain, or change in vision. 05/08 Patient feels better. But he still has tachycardia, tachypnea and mild fever. Blood culture showed positive for strep pneumonae Discussed with both patient and brother Bill in pt's room. Both agreed with DNR and DNI. Review of Systems All systems: reviewed and no additional remarkable complaints except as stated Constitutional Vitals: Vital Signs Temp Pulse Resp BP Pulse Ox 99.7 F H 105 H 22 120/94 94 05/08/20 16:00 05/07/20 17:15 05/08/20 16:36 05/08/20 16:00 05/08/20 14:03 Period Temp Pulse Resp BP Sys/Bello Pulse Ox Last 24 Hr 98.0 F-99.7 F 20-38 84-135/58-113 89-97 Intake and Output 05/08/20 05/08/20 05/08/20 05:59 13:59 21:59 Intake Total 815 1050 1000 Output Total 425 150 Balance 922 746 3345 Weight 66.905 kg 66.905 kg Patient Weight 05/09/20 05:59 Weight 66.905 kg Intake & Output: Intake & Output 05/08/20 05/08/20 05/08/20 05:59 13:59 21:59 Intake Total 815 1050 1000 Output Total 425 150 Balance 398 984 4056 Weight 66.905 kg 66.905 kg Intake: IV 755 1050 1000 Dextrose 5%-1/2Ns IV Solution 1 755 1000 1000 ,000 ml @ 125 mls/hr IV .Q8H [facility] Rx#:[id number] Rocephin 2 gm In Dextrose 5% in 50 Water 50 ml @ 100 mls/hr IV DAILY [facility] Rx#:[id number] Oral 60 0 Output: Urine Catheter Amount 425 150 Other: Meal Lunch Percent of Meal Consumed 0% Feeding Ability Needs Supervision Urine Appearance Cloudy Cloudy Cloudy Sediment Sediment Hematuria Hematuria Uretheral (Steven) Cloudy Cloudy Cloudy Urine Color Bright Yellow Light Eneida Light Eneida Uretheral (Steven) Dark Yellow Light Eneida Light Eneida Additional findings Additional findings: General - Garbled speech, but he answers questions appropriately. No acute distress Eyes - PERRLA, EOM intact ENT no rhinorrhea, no noticeable or palpable swelling, no redness or rash a round throat or on face. Dry oral mucous membranes Neck supple, no JVD, no thyromegaly Respiratory: Lungs - CTA. No wheezing. Cardiovascular - RRR no m/r/g, GI - Normal bowel sounds, no distended, soft. Extremeties - Pitting edema + in both legs; no cyanosis or clubbing. Tremor noted in both arms and hands Hemo/lymphatic/immune no lymphadenopathy Neurological Alert and oriented x 3, garbled/slurred speech (improving), no focal neurologic deficits. Psychiatry flat affect OBJ DATA Labs CBC & Chem 7: 05/08/20 05:15 05/08/20 05:15 Labs: Abnormal Lab Results 05/08/20 05/08/20 05/07/20 05:15 05:15 21:45 WBC RBC 3.35 L Hgb 10.4 L Hct 31.7 L RDW 14.7 H Gran % Lymph % (Auto) Gran # 8.29 H Carbon Dioxide 18 L Anion Gap BUN 42 H Creatinine 1.4 H Glucose 140 H Calcium 8.2 L Total Bilirubin 1.7 H AST 303 H ALT 83 H Alkaline Phosphatase 1736 H Total Creatine Kinase CK-MB (CK-2) Troponin T 0.05 H* NT-Pro-B Natriuret Pep Total Protein 4.5 L Albumin 2.3 L Urine Protein Urine Ketones Urine Occult Blood Urine Urobilinogen 05/07/20 05/07/20 05/07/20 15:50 15:50 12:09 WBC RBC Hgb Hct RDW Gran % Lymph % (Auto) Gran # Carbon Dioxide Anion Gap BUN Creatinine Glucose Calcium Total Bilirubin AST ALT Alkaline Phosphatase Total Creatine Kinase CK-MB (CK-2) Troponin T 0.06 H* NT-Pro-B Natriuret Pep 2911.0 H Total Protein Albumin Urine Protein 30 A Urine Ketones 5/tr A Urine Occult Blood >=1.0 A Urine Urobilinogen 4.0 A 05/07/20 05/07/20 11:10 11:10 WBC 13.2 H RBC 3.56 L Hgb 10.8 L Hct 34.0 L RDW Gran % 81.8 H Lymph % (Auto) 13.1 L Gran # 10.80 H Carbon Dioxide 13 L Anion Gap 25.0 H BUN 46 H Creatinine 1.9 H Glucose 43 L Calcium Total Bilirubin 2.0 H AST 319 H ALT 82 H Alkaline Phosphatase 2291 H Total Creatine Kinase 4169 H CK-MB (CK-2) 36.8 H Troponin T NT-Pro-B Natriuret Pep Total Protein 5.3 L Albumin 2.8 L Urine Protein Urine Ketones Urine Occult Blood Urine Urobilinogen Meds: Medications Brimonidine Tartrate (Alphagan P Ophth Drops) 1 gtt OU Q8H [facility] Last Admin: 05/08/20 14:00 Dose: 1 gtt Documented by: Diagnostic Test (Pha) (Accu-Chek) 1 each FS Q6 [facility] Docusate Sodium (Colace) 100 mg PO BID [facility] Last Admin: 05/08/20 08:07 Dose: Not Given Documented by: Famotidine (Pepcid) 20 mg IV Q12 [facility] Last Admin: 05/08/20 08:11 Dose: 20 mg Documented by: Dextrose/Sodium Chloride (Dextrose 5%-1/2ns Iv Solution) 1,000 mls @ 125 mls/hr IV .Q8H [facility] Last Admin: 05/08/20 15:48 Dose: 125 mls/hr Documented by: Ceftriaxone Sodium 2 gm/ (Dextrose) 50 mls @ 100 mls/hr IV DAILY [facility]; Protocol Last Infusion: 05/08/20 12:12 Dose: Infused Documented by: Ketorolac Tromethamine (Toradol) 15 mg IV Q6HP PRN PRN Reason: Fever Stop: 05/10/20 17:19 Last Admin: 05/08/20 17:45 Dose: 15 mg Documented by: Latanoprost (Xalatan Ophth Drops) 1 gtt OU QPM [facility] Last Admin: 05/07/20 21:22 Dose: 1 drop Documented by: Ondansetron HCl (Zofran) 4 mg IV Q4HP PRN; Protocol PRN Reason: Nausea And Vomiting Oxybutynin Chloride (Ditropan) 5 mg PO QHS [facility] Last Admin: 05/07/20 21:20 Dose: 5 mg Documented by: Promethazine HCl (Phenergan) 12.5 mg IV Q6HP PRN; Protocol PRN Reason: Nausea And Vomiting Sodium Chloride (Saline Flush) 10 ml IV Q8 [facility] Last Admin: 05/08/20 14:24 Dose: 10 ml Documented by: Timolol Maleate (Timoptic 0.5% Ophth Drops) 1 gtt OU BID [facility] Tramadol HCl (Ultram) 50 mg PO Q6HP PRN; Protocol PRN Reason: Pain Last Admin: 05/07/20 21:15 Dose: 50 mg Documented by: A/P Narrative A/P Narrative: 1. Mechanical fall, ground level Hip x-ray showed no fracture PT OT 2. Rhabdomyolysis IV fluid Monitor renal function Repeat CK in morning 3. Hypoglycemia, Hb11c 5.9 on 04/24/2019 Denies history of diabetes Could be due to not eating well D50 x 2 were given in the ER. D5 one half normal IV 125 cc per hour Hemoglobin A1c 3. Metastatic prostate cancer to bone? PSA 128 on 11/28/2019, ALP 2291 Hip/pelvis XR- Diffuse sclerotic infiltration of the bone marrow throughout the visualized bones. Malignancy such as metastatic prostate cancer should be suspected. Urology consult 4. Leukocytosis Unknown etiology, could be due to acute distress No evidence of infection Repeat CBC in morning 5. Chronic anemia Could be due to metastatic malignancy and malnutrition Repeat CBC in morning 6. THONY or THONY on CKD, creatinine 1.0 n 08/08/2019 Creatinine trending down Urine sodium and creatinine Avoid nephrotoxic meds Intake and output Repeat renal function in morning 7. Dehydration IV fluid BNP 8. Elevation of liver enzymes Repeat liver function in the morning 9. Hematuria Urinalysis negative for UTI Could be due to prostate cancer Monitor HH No pharmacological DVT prophylaxis 10. Garbled/slurred speech Not sure chronicity Etiology unknown. But I feel it is more likely due to dysarthria over stroke Nasal labial folds symmetrical No focal neurologic deficits CT of head - negative for acute change N.p.o. until passing swallow screen, ST. MRI brain (unavailable until Sunday. Patient agreed and understood) 11. Self care deficit PT OT CM 12. Bacteremia -strep pneumoniae, sensitivity pending Repeat blood culture Echo Ceftriaxone would add vanco if not respond well 13. Elevation of troponin EKG no ST elevation Could be due to THONY/rhabdo Continue aspirin and Lipitor Patient understood that there is no prototype technician or stress test available in this hospital. 14. DVT prophylaxis: SCD No DVT prophylaxis at this moment due to recent fall, rhabdomyolysis and hematuria 15. CODE STATUS: DNR/DNI Time Spent With Patient Time: Total time spent is greater than 50% in coordination of care (as documented) at patient's floor/unit and/or counseling patient: QUALITY VTE Deep Vein Thrombosis/Pulmonary Embolism Present on Admission: No
--- NOTE | 2020-05-08 18:04 | Event Note ---
Event Note Event Note: arties in Attendance: Patient and brother Bill. Decisional Capacity: Yes POLST form completed: not I explained the process regarding CPR and intubation. Both pt and Bill agreed with DNR/DNI.
[2020-05-08] MEDS: TIMOLOL 0.5% OPHTH DROPS BOTTLE 5ML OU SCH (20:37)
[2020-05-08] MEDS: OXYBUTYNIN CHLORIDE 5 MG TABLET PO SCH (20:38)
[2020-05-08] MEDS: LATANOPROST OPHTH DROPS 2.5ML BOTTLE OU SCH (21:07)
[2020-05-09] MEDS: DEXTROSE 5%-1/2NS 1,000 ML IV SCH ×2 (00:33→10:21)
[2020-05-09] MEDS: traMADol 50 MG TABLET PO PRN (01:54)
[2020-05-09] MEDS ORDERED: DILTIAZEM 125 MG/25 ML VIAL IV ONE (04:50)
[2020-05-09] MEDS: 0.9 % SODIUM CHLORIDE 10 ML SYRINGE IV SCH (04:50)
[2020-05-09] MEDS ORDERED: 0.9 % SODIUM CHLORIDE 250 ML IV SCH (05:15)
[2020-05-09] MEDS ORDERED: DILTIAZEM 125 MG in DEXTROSE 5% IN WATER 100 ML IV SCH (05:15)
[2020-05-09] MEDS: BRIMONIDINE OPHTH DROPS 1 GTT BOTTLE 5ML OU SCH (05:53)
[2020-05-09] MEDS ORDERED: 0.9 % SODIUM CHLORIDE 250 ML IV ONE (06:14)
[2020-05-09] MEDS: METOPROLOL TARTRATE 5 MG/5 ML VIAL IV SCH ×4 (06:20→09:15)
[2020-05-09] MEDS ORDERED: METOPROLOL TARTRATE 5 MG/5 ML VIAL IV ONE ×3 (06:24→09:20)
[2020-05-09] MEDS: cefTRIAXone 2 GM in DEXTROSE 5% IN WATER 50 ML IV SCH (08:05)
[2020-05-09] MEDS: FAMOTIDINE/PF 20 MG/2 ML VIAL IV SCH (08:06)
[2020-05-09] MEDS: TIMOLOL 0.5% OPHTH DROPS BOTTLE 5ML OU SCH (08:06)
[2020-05-09] MEDS: KETOROLAC 15 MG/ML VIAL IV PRN (08:08)
[2020-05-09 08:28] LABS: ALT/SGPT 217 U/l (0-40); Albumin 2.1 gm/dL (3.2-5.2); Albumin/Globulin Ratio 0.9 (1.0-2.3); Bilirubin,Total 2.3 mg/dL (0.0-1.0); Blood Urea Nitrogen 46 mg/dl (8-23); Carbon Dioxide 18 mmol/L (22-30); Globulin 2.3 gm/dL (2.2-3.7); Glucose 93 mg/dL (70-105)
[2020-05-09 08:43] LABS: AST/SGOT 1450 U/l (0-37); Alkaline Phosphatase 1745 U/L (39-117); Chloride 110 mmol/L (96-108); Creatine Kinase 1947 IU/L (24-195); Glomerular Filtration Rate 36
[2020-05-09 08:57] LABS: Basophils # (Auto) 0.06 K/mcL (0.00-0.30); Basophils % (Auto) 0.6 % (0.0-2.0); Eosinophils # (Auto) 0.07 K/mcL (0.00-0.70); Eosinophils % (Auto) 0.7 % (0.0-7.0); Hematocrit 33.1 % (40.1-51.0); Hemoglobin 10.3 g/dL (13.7-17.5); Lymphocytes # (Auto) 2.23 K/mcL (1.50-4.80); Lymphocytes % (Auto) 21.2 % (15.5-49.0); Mean Cell Volume 98.5 fL (80.0-100.0); Mean Corpuscular HGB Conc 31.1 g/dL (31.0-36.0); Mean Platelet Volume 10.6 fL (7.4-10.4); Monocytes # (Auto) 0.47 K/mcL (0.10-0.90); Monocytes % (Auto) 4.5 % (1.0-12.0); Platelet Count 251 K/mcL (140-440); RBC 3.36 M/mcL (4.63-6.08); WBC 10.5 K/mcL (4.50-11.00)
[2020-05-09] MEDS ORDERED: ONDANSETRON 4 MG/2 ML VIAL IV PRN ×2 (11:06→11:50)
[2020-05-09] MEDS ORDERED: LORazepam 2 MG/ML VIAL IV PRN (11:06)
[2020-05-09] MEDS ORDERED: SCOPOLAMINE 1 PATCH PATCH TOPICAL SCH (11:15)
[2020-05-09] MEDS: DOCUSATE SODIUM 100 MG CAPSULE PO SCH (11:37)
[2020-05-09] MEDS: LORazepam 2 MG/ML VIAL IV PRN ×3 (14:08→23:34)
--- NOTE | 2020-05-09 18:37 | Internal Med Progress Note ---
SUBJECTIVE Subjective Patient information: Note initiated : 05/09/20 at 6:37 pm Service Date, if different from initiated Date: [] Patient: Karsten Charles 74 y/o M admitted on 05/07/20 for fall hip back pain. Chief Complaint: [] Mr. Charles is a 74 year old M with a history of prostate cancer and chronic anemia who was brought blood to the ER due to falling at home. Patient has a garbled speech and a poor historian. Patient fell (slid off of his bed and landed on the floor) last night at home. He denies loss of consciousness or injury to head. Denies nausea, vomiting, or palpitation at that time. He stayed on the ground for several hours until his brother found him. Patient lives by himself. In the ER, he was found to have will hypoglycemia 27, and elevation of CK and creatinine. Blood glucose level was up to 77 after 2 amp of D50 were given. Hip x-ray did not show fracture but did show evidence of metastatic malignancy to bone. When I saw this patient in the ER, other than symptoms mentioned above, he denied headache, dizziness, nausea, vomiting, fever, chills, chest pain, abdominal pain, or change in vision. 05/08 Patient feels better. But he still has tachycardia, tachypnea and mild fever. Blood culture showed positive for strep pneumonae Discussed with both patient and brother Pedro in pt's room. Both agreed with DNR and DNI. 05/09 Last night patient developed atrial fibrillation with RVR. He was treated with diltiazem drip and metoprolol. This morning his blood pressure was very soft. Urine output was low. His fluid status is some overloaded presenting with pitting edema ++ in both legs. Obviously his condition has deteriorated. At this moment I felt he should start on vasopressor. Patient self cannot make a decision on use of vasopressor. Brother Pedro and Pedro's Latanya were call in. ASHLEY Grier and I met Pedro and his in patient's room. With the patient's permission, I updated to the family. They decided to pursue comfort care only which should be start started immediately. Review of Systems All systems: reviewed and no additional remarkable complaints except as stated Constitutional Vitals: Vital Signs Temp Pulse Resp BP Pulse Ox 99.4 F H 111 H 26 H 83/61 100 09/20/20 07:00 05/08/20 18:10 05/09/20 10:59 05/09/20 10:59 05/09/20 10:59 Period Temp Pulse Resp BP Sys/Bello Pulse Ox Last 24 Hr 98.1 F-99.4 F 20-32 73-121/53-88 87-100 Intake and Output 05/09/20 05/09/20 05/09/20 05:59 13:59 21:59 Intake Total 1000 1478 Output Total 125 200 Balance 875 1278 Weight 68.311 kg Intake & Output: Intake & Output 05/09/20 05/09/20 05/09/20 05:59 13:59 21:59 Intake Total 1000 1478 Output Total 125 200 Balance 875 1278 Weight 68.311 kg Intake: IV 1000 1478 Sodium Chloride 0.9% 250 ml @ 270 Wide Open IV [facility] Rx#: [id number] Dextrose 5%-1/2Ns IV Solution 1 1000 1158 ,000 ml @ 125 mls/hr IV .Q8H [facility] Rx#:[id number] Rocephin 2 gm In Dextrose 5% in 50 Water 50 ml @ 100 mls/hr IV DAILY [facility] Rx#:[id number] Oral 0 Output: Urine Catheter Amount 125 200 Other: Meal Apple sauce Percent of Meal Consumed 100% Feeding Ability Total Assistance Urine Appearance Cloudy Cloudy Uretheral (Steven) Cloudy Cloudy Urine Color Door Tea Colored Uretheral (Steven) Door Door OBJ DATA Labs CBC & Chem 7: 05/09/20 05:50 05/09/20 05:50 Labs: Abnormal Lab Results 05/09/20 05/09/20 05/08/20 05:50 05:50 05:15 WBC RBC 3.36 L 3.35 L Hgb 10.3 L 10.4 L Hct 33.1 L 31.7 L RDW 15.0 H 14.7 H MPV 10.6 H Gran % Lymph % (Auto) Gran # 8.29 H Chloride 110 H Carbon Dioxide 18 L Anion Gap BUN 46 H Creatinine 1.8 H Glucose Calcium 8.0 L Total Bilirubin 2.3 H AST 1450 H ALT 217 H Alkaline Phosphatase 1745 H Total Creatine Kinase 1947 H CK-MB (CK-2) Troponin T NT-Pro-B Natriuret Pep Total Protein 4.4 L Albumin 2.1 L Albumin/Globulin Ratio 0.9 L Urine Protein Urine Ketones Urine Occult Blood Urine Urobilinogen 05/08/20 05/07/20 05/07/20 05:15 21:45 15:50 WBC RBC Hgb Hct RDW MPV Gran % Lymph % (Auto) Gran # Chloride Carbon Dioxide 18 L Anion Gap BUN 42 H Creatinine 1.4 H Glucose 140 H Calcium 8.2 L Total Bilirubin 1.7 H AST 303 H ALT 83 H Alkaline Phosphatase 1736 H Total Creatine Kinase CK-MB (CK-2) Troponin T 0.05 H* 0.06 H* NT-Pro-B Natriuret Pep Total Protein 4.5 L Albumin 2.3 L Albumin/Globulin Ratio Urine Protein Urine Ketones Urine Occult Blood Urine Urobilinogen 05/07/20 05/07/20 05/07/20 15:50 12:09 11:10 WBC RBC Hgb Hct RDW MPV Gran % Lymph % (Auto) Gran # Chloride Carbon Dioxide 13 L Anion Gap 25.0 H BUN 46 H Creatinine 1.9 H Glucose 43 L Calcium Total Bilirubin 2.0 H AST 319 H ALT 82 H Alkaline Phosphatase 2291 H Total Creatine Kinase 4169 H CK-MB (CK-2) 36.8 H Troponin T NT-Pro-B Natriuret Pep 2911.0 H Total Protein 5.3 L Albumin 2.8 L Albumin/Globulin Ratio Urine Protein 30 A Urine Ketones 5/tr A Urine Occult Blood >=1.0 A Urine Urobilinogen 4.0 A 05/07/20 11:10 WBC 13.2 H RBC 3.56 L Hgb 10.8 L Hct 34.0 L RDW MPV Gran % 81.8 H Lymph % (Auto) 13.1 L Gran # 10.80 H Chloride Carbon Dioxide Anion Gap BUN Creatinine Glucose Calcium Total Bilirubin AST ALT Alkaline Phosphatase Total Creatine Kinase CK-MB (CK-2) Troponin T NT-Pro-B Natriuret Pep Total Protein Albumin Albumin/Globulin Ratio Urine Protein Urine Ketones Urine Occult Blood Urine Urobilinogen Meds: Medications Lorazepam (Ativan) 0.5 mg IV Q2-4HP PRN PRN Reason: ANXIETY/SEDATION Last Admin: 05/09/20 16:56 Dose: 0.5 mg Documented by: Morphine Sulfate (Morphine) 2 mg IV Q2HP PRN; Protocol PRN Reason: Per Pain Protocol Last Admin: 05/09/20 16:56 Dose: 2 mg Documented by: Ondansetron HCl (Zofran) 4 mg IV Q4-6HP PRN PRN Reason: Nausea And Vomiting Scopolamine (Transderm-Scop) 1 patch TOPICAL Q72H [facility] A/P Narrative A/P Narrative: Assessment: 1. Mechanical fall, ground level 2. Rhabdomyolysis 3. Hypoglycemia, Hb11c 5.9 on 04/24/2019 3. Metastatic prostate cancer to bone? 4. Leukocytosis 5. Chronic anemia 6. THONY or THONY on CKD, creatinine 1.0 n 08/08/2019 7. Dehydration 8. Elevation of liver enzymes 9. Hematuria 10. Garbled/slurred speech 11. Self care deficit 12. Bacteremia -strep pneumoniae, sensitivity pending 13. Elevation of troponin Plan: Comfort care only - Morphine 2 mg IV every 2 hours as needed, Ativan 0.5 mg IV every 2 to 4 hours as needed, scopolamine topical 1 patch every 72 hours. Oxygen therapy Steven catheter Time Spent With Patient Time: Total time spent is greater than 50% in coordination of care (as documented) at patient's floor/unit and/or counseling patient: QUALITY VTE Deep Vein Thrombosis/Pulmonary Embolism Present on Admission: No
[2020-05-10] MEDS: LORazepam 2 MG/ML VIAL IV PRN (02:15)
--- NOTE | 2020-05-10 17:09 | Discharge Summary ---
Discharge Provider Provider Patient information: Note initiated : 05/10/20 at 5:05 pm Service Date, if different from initiated Date: [] Patient: Karsten Charles 74 y/o M admitted on 05/07/20 for fall hip back pain. Chief Complaint: [] Date of admission: 05/07/20 16:30 Discharge date: 05/10/20 Primary care physician: PCP No Consults: 05/07/20 Consult to Physician [CONS] Stat Comment: Consulting Provider: Karolyn Sy Reason For Exam: Physician to Consult Discharge Meds Discharge Medications Home Medications brimonidine 0.2 % eye drops 1 drp OPHTHALMIC Q8H ml 07/25/19 [History Confirmed 05/07/20 Last Taken Unknown] latanoprost 0.005 % eye drops 1 drp OPHTHALMIC QPM 07/25/19 [History Confirmed 05/07/20 Last Taken Unknown] timolol 0.5 % eye drops 1 drp OPHTHALMIC BID 07/25/19 [History Confirmed 05/07/20 Last Taken Unknown] oxybutynin chloride 5 mg tablet 5 mg PO QHS #90 tab 02/25/20 [Rx Confirmed 05/07/20 Last Taken Unknown] COURSE Hospital Course Hospital course: Mr. Charles is a 74 year old M with a history of prostate cancer and chronic anemia who was brought blood to the ER due to falling at home. Patient has a garbled speech and a poor historian. Patient fell (slid off of his bed and landed on the floor) last night at home. He denies loss of consciousness or injury to head. Denies nausea, vomiting, or palpitation at that time. He stayed on the ground for several hours until his brother found him. Patient lives by himself. In the ER, he was found to have will hypoglycemia 27, and elevation of CK and creatinine. Blood glucose level was up to 77 after 2 amp of D50 were given. Hip x-ray did not show fracture but did show evidence of metastatic malignancy to bone. When I saw this patient in the ER, other than symptoms mentioned above, he denied headache, dizziness, nausea, vomiting, fever, chills, chest pain, abdominal pain, or change in vision. 1. Mechanical fall, ground level 2. Rhabdomyolysis 3. Hypoglycemia, Hb11c 5.9 on 04/24/2019 3. Metastatic prostate cancer to bone? 4. Leukocytosis 5. Chronic anemia 6. THONY or THONY on CKD, creatinine 1.0 n 08/08/2019 7. Dehydration 8. Elevation of liver enzymes 9. Hematuria 10. Garbled/slurred speech 11. Self care deficit 12. Bacteremia -strep pneumoniae, sensitivity pending 13. Elevation of troponin 05/08 Patient feels better. But he still has tachycardia, tachypnea and mild fever. Blood culture showed positive for strep pneumonae Discussed with both patient and brother Pedro in pt's room. Both agreed with DNR and DNI. 05/09 Last night patient developed atrial fibrillation with RVR. He was treated with diltiazem drip and metoprolol. This morning his blood pressure was very soft. Urine output was low. His fluid status is some overloaded presenting with pitting edema ++ in both legs. Obviously his condition has deteriorated. At this moment I felt he should start on vasopressor. Patient self cannot make a decision on use of vasopressor. Brother Pedro and Pedro's Latanya were call in. ASHLEY Grier and I met Pedro and his in patient's room. With the patient's permission, I updated to the family. They decided to pursue comfort care only which should be start started immediately. 05/10 He today. Discharge diagnosis: Metastatic prostate cancer Time Spent with Patient Time attestation: Total time spent providing and/or coordinating discharge services: EXAM Constitutional Vitals: Temp Pulse Resp BP Pulse Ox 98.7 F 82 16 70/42 87 L 05/09/20 19:19 05/09/20 19:19 05/09/20 19:19 05/09/20 19:19 05/09/20 19:19 Discharge Data Data Completed and Pending Labs on day of discharge: Preliminary micro results at discharge 05/08/20 10:09 Blood Culture - Preliminary Blood 05/08/20 10:02 Blood Culture - Preliminary Blood Discharge Plan Patient/Caregiver Discharge Instructions Prescriptions: No Action brimonidine 0.2 % drops 1 drp OPHTHALMIC Q8H RF: 0 latanoprost 0.005 % drops 1 drp OPHTHALMIC QPM RF: 0 timolol 0.5 % drops 1 drp OPHTHALMIC BID RF: 0 oxybutynin chloride 5 mg tablet 5 mg PO QHS Qty: 90 RF: 5 Follow Up Plan Patient Disposition: Discharge Date/Time: 05/10/20 08:40 Discharge Orders: Discharge Order (Routine); Ordered 05/10/20 Ordered By: Karolyn Sy Discharge Comment: Body to mortuary by Tyrel Medina. QUALITY VTE Deep Vein Thrombosis/Pulmonary Embolism Present on Admission: No
[2020-05-12] MEDS ORDERED: SCOPOLAMINE 1 PATCH PATCH TOPICAL SCH (09:00)
== END 2020-05-10 08:40 | disposition expired | DRG 558 ==
LOC: ED 10:12 → ICU 16:30 → MEDSUR 05-09 17:30
PROVIDERS: ADMIT Internal Medicine; ATTEND Internal Medicine